=== PATIENT | male | born 1965 | race African-American/Black ===

== ENCOUNTER 2019-07-11 15:41 | Emergency (ER) | payer SELFPAY ==
[~2019-07-11] VITALS: Ht 188 cm; Wt 155.1 kg
== END 2019-07-11 16:21 | disposition home or self-care (01) ==
LOC: FSED 15:41
DX: S00.83XA Contusion of other part of head, initial encounter (principal); M54.2 Cervicalgia; M54.6 Pain in thoracic spine; M25.561 Pain in right knee; V43.52XA Car driver injured in collision with other type car in traffic accident, initial encounter; Y92.488 Other paved roadways as the place of occurrence of the external cause
CPT/HCPCS: 99283